=== PATIENT | female | born 1990 | race Two or more races ===

== ENCOUNTER → 2017-11-07 | Outpatient (CLI) | payer OTHER ==
--- NOTE | 2017-11-07 16:25 | RADIOLOGY IMAGING REPORT ---
FACILITY: [facility] - [place] PATIENT NAME: Vu Mcwilliams : 1990 MR: [id number] V: [id number] EXAM DATE: ORDERING PHYSICIAN: REKHA HARPER TECHNOLOGIST: Location: [facility] [place] Patient: Vu Mcwilliams : 1990 Visit/Account:[id number] Date of Sevice: 11/07/2017 Chest with lateral, two views. HISTORY: Positive TB test. COMPARISON: None. The heart and mediastinum are unremarkable. Pulmonary vessels are unremarkable. The lungs are clear . The pleural surfaces are unremarkable. No pneumothorax. No lung cavities. No acute bony abnormali ties. IMPRESSION: No evidence of acute cardiopulmonary disease. No evidence of tuberculosis. Report Dictated By: Sreekanth Rojas MD at 11/07/2017 4:18 PM Report E-Signed By: Sreekanth Rojas MD at 11/07/2017 4:19 PM WSN:[id number]
== END ==
LOC: RAD 14:57
PROVIDERS: ATTEND Pediatrics Adolescent Medicine
DX: R76.11 Nonspecific reaction to tuberculin skin test without active tuberculosis (principal)
CPT/HCPCS: 71046